=== PATIENT | female | born 2000 | race Caucasian/White ===

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

== ENCOUNTER → 2018-05-05 | Outpatient (CLI) | payer BC ==
[~2018-05-05] MED LIST: ACYC400T PO; DICY20TA3 PO; ESCITALOPRAM OX10 MG PO; IBUP-1027 PO; LISD40CA3 PO; NORE1TAB11 PO; ONDA8TAB9 PO; TRAM50TA PO
[2018-05-05 14:15] LABS: BASO # 0.1 x10^3/uL (0.0-0.2); BASO % 1 % (0-3); EOS # 0.5 x10^3/uL (0.0-0.7); EOS % 6 % (0-3); HEMATOCRIT 38.2 % (36.0-47.0); HEMOGLOBIN 13.2 g/dL (12.0-15.5); LYMPH # 2.2 x10^3/uL (1.0-4.8); LYMPH % 25 % (24-48); MEAN CORPUSCULAR HEMOGLOBIN 30 pg (25-35); MEAN CORPUSCULAR HGB CONC 35 g/dL (31-37); MEAN CORPUSCULAR VOLUME 87 fL (79-100); MONO # 0.5 x10^3/uL (0.0-1.1); MONO % 6 % (0-9); NEUT # 5.3 x10^3uL (1.8-7.7); NEUT % 62 % (31-73); PLATELET COUNT 346 x10^3/uL (140-400); RED BLOOD COUNT 4.39 x10^6/uL (3.50-5.40); RED CELL DISTRIBUTION WIDTH 12.6 % (11.5-14.5); WHITE BLOOD COUNT 8.6 x10^3/uL (4.0-11.0)
[2018-05-05 14:26] LABS: ALBUMIN 3.7 g/dL (3.4-5.0); CALCIUM 9.3 mg/dL (8.5-10.1); CREATININE 0.8 mg/dL (0.6-1.0); GFR 92.4; POTASSIUM 4.2 mmol/L (3.5-5.1); TOTAL BILIRUBIN 0.3 mg/dL (0.2-1.0)
== END | disposition home or self-care (01) ==
LOC: SURGPAT 13:35
PROVIDERS: ATTEND Surgery
DX: Z01.818 Encounter for other preprocedural examination (principal); K82.8 Other specified diseases of gallbladder
CPT/HCPCS: 36415; 80048; 82040; 82247; 85025

== ENCOUNTER 2018-05-12 09:23 | Day surgery (SDC) | payer BC ==
[~2018-05-12] VITALS: Ht 160 cm; Wt 90.3 kg
[~2018-05-12 09:23] MED LIST changes: +HYDROmorphone 2 MG/ML VIAL IV PRN; +IV RINGERS,LACTATED 1000ML 1,000 ML IV SCH; +LIDOCAINE 1% PF 2 ML VIAL. ID PRN; +PROCHLORPERAZINE 10 MG/2 ML VIAL. IV PRN; +fentaNYL PF VIAL 100 MCG/2 ML VIAL IV PRN
[2018-05-12] MEDS ORDERED: KETOROLAC 30 MG/ML INJ FOR OR. INJ ONE (09:33)
[2018-05-12] MEDS ORDERED: ROCURONIUM 50 MG/5 ML VIAL. ONE (09:33)
[2018-05-12] MEDS ORDERED: GLYCOPYRROLATE 1 MG/5 ML VIAL. ONE (09:33)
[2018-05-12] MEDS ORDERED: fentaNYL PF VIAL 100 MCG/2 ML VIAL ONE ×2 (09:33→11:33)
[2018-05-12] MEDS ORDERED: NEOSTIGMINE METHYLSULFATE 5 MG/5 ML SYRINGE. ONE (09:33)
[2018-05-12] MEDS ORDERED: MIDAZOLAM HCL/PF 2 MG/2 ML VIAL. ONE (09:33)
[2018-05-12] MEDS ORDERED: PROPOFOL 20 ML IV ONE ×2 (09:33→11:37)
[2018-05-12] MEDS ORDERED: ONDANSETRON PF 4 MG/2 ML VIAL. ONE (09:33)
[2018-05-12] MEDS ORDERED: DEXAMETHASONE SOD PHOS 20 MG/5 ML VIAL. ONE (09:33)
[2018-05-12] MEDS ORDERED: LIDOCAINE 1% PF 5 ML VIAL. ONE (09:34)
[2018-05-12] MEDS ORDERED: BUPIVAC MPF-EPI 0.5%-1:200000 30 ML VIAL. ONE (10:12)
[2018-05-12] MEDS ORDERED: IOHEXOL 300 MG/ML 100ML VIAL. ONE (10:12)
[2018-05-12] MEDS ORDERED: GLUCAGON,HUMAN RECOMBINANT 1 MG/ML VIAL. ONE (10:12)
[2018-05-12] MEDS ORDERED: SURGICEL HEMOSTAT 4X8 EACH. ONE (10:13)
[2018-05-12 10:47] LABS: U PREG PATIENT NEGATIVE (NEG)
[2018-05-12] MEDS ORDERED: ePHEDrine PF IN SALINE 50 MG/5 ML DISP.SYRIN IV ONE (11:23)
[2018-05-12] MEDS ORDERED: PHENYLEPHRINE in 0.9% NACL PF 1 MG/10 ML SYRINGE. IV ONE (11:25)
--- NOTE | 2018-05-12 12:04 | PDOC ---
BRIEF OPERATIVE NOTE Date: May 12, 2018 Pre-Op Diagnosis biliary dyskinesia Post-Op Diagnosis same Procedure Performed l/s cholecystectomy Surgeon Sanjeev [employer] CLINE Anesthesia Type: General Blood Loss 25cc IV Fluid 1000cc Specimens Obtained GB Findings supple GB Complications none Operative Note Wk # [id number] ABDON PARK MD May 12, 2018 12:04
--- NOTE | 2018-05-12 12:05 | DISCH ---
DISCHARGE INSTRUCTIONS Condition on Discharge Condition on Discharge: Stable Activity After Discharge Activity Instructions for Disc: Activity as tolerated, Avoid exertion Driving Instructions after Dis: Do not drive (3-4 days) Diet after Discharge Diet after Discharge: Regular Wound Incision Care Wound/Incision Care: Ice to area for comfort Other wound/incision instructi: sveta shower Tuesday Follow-Up Follow up with: Sanjeev 05/22 ABDON PARK MD May 12, 2018 12:05
--- NOTE | 2018-05-12 12:14 | OP ---
DATE OF SURGERY: 05/12/2018 PREOPERATIVE DIAGNOSIS: Biliary dyskinesia. POSTOPERATIVE DIAGNOSIS: Biliary dyskinesia. PROCEDURE: Laparoscopic cholecystectomy. SURGEON: Pro Pace MD BUS ANALYST: MARLYN Romo ANESTHESIA: General endotracheal. ESTIMATED BLOOD LOSS: 25. IV FLUIDS: 1 liter. INDICATIONS: The patient is a 17-year-old with postprandial pain and nausea. HIDA scan shows a low ejection fraction of 26%. She is brought for cholecystectomy. OPERATIVE FINDINGS: The liver was smooth and sharp. The gallbladder was supple. Visual inspection of the remainder of the abdomen failed to reveal obvious abnormalities. DESCRIPTION OF PROCEDURE: The patient brought to the operating suite, given a general endotracheal anesthetic and the abdomen prepped and draped in usual sterile fashion. An infraumbilical incision was infiltrated with local anesthetic, incised and a 5 mm Visiport used to safely gain access into the abdominal cavity. Pneumoperitoneum established. Camera inserted. Inspection carried out with results as noted above. With the table in reverse Trendelenburg, rolled to the left, the epigastric, midclavicular, and lateral ports were placed under direct vision. The gallbladder was retracted superolaterally. The cystic duct and cystic artery were encountered. The cystic artery was clipped and divided. The cystic duct was clipped on the gallbladder side. Attempts at cholangiogram was unsuccessful due to the small caliber of the cystic duct. As such, it was clipped x 3 and divided, taking care to avoid injury or compromise of the common duct. A second and tertiary vessel were encountered, clipped and divided and gallbladder freed from the bed with cautery dissection and placed in an EndoCatch bag. Good hemostasis in the fossa was seen as well as no evidence of a bile leak. Table returned to level. Gallbladder delivered through the epigastric incision. Epigastric incision closed with interrupted 0 Vicryl suture. Intra-abdominal pressure decreased to 6 cm of water. No bleeding from the epigastric closure or from the midclavicular port site or the lateral port site. Abdomen decompressed, camera slowly removed, no bleeding seen. Skin incisions closed with subcuticular 4-0 Monocryl. Steri-Strips and sterile dressings applied. The patient awakened from her anesthetic and taken to the recovery room in satisfactory condition. PRO V. VIVIAN, MD DR: MARILYN/lyn JOB#: [id number] / [id number]
[2018-05-12] MEDS: fentaNYL PF VIAL 100 MCG/2 ML VIAL IV PRN ×2 (12:22→12:30)
[2018-05-12] MEDS: MORPHINE SULFATE 2 MG/ML VIAL. IV PRN ×2 (12:48→13:03)
[2018-05-12] MEDS ORDERED: OXYC-323 PO (12:59)
[2018-05-12] MEDS ORDERED: oxyCODONE/APAP 5/325 1 TAB TABLET PO ONE (13:00)
[2018-05-12] MEDS ORDERED: DOCU50CA9 PO (13:01)
[2018-05-12 14:20] VITALS: BP 118/77
--- NOTE | 2018-05-15 17:08 | PATHOLOGY ---
[facility] Accession Number: [id number] . 01 Material submitted: . GALLBLADDER . 01 Clinical history: . Disease of gallbladder. . 02 Diagnosis: Gallbladder, laparoscopic cholecystectomy: - Cholesterolosis, focal. - Chronic cholecystitis. . (JPM:mm; 05/15/18) [facility], [facility]/05/15/2018 . 02 Comment: There are no calculi identified within the gallbladder lumen or specimen container. There is no evidence of malignancy. . (JPM:mm; 05/15/18) . 02 Electronically signed: . Monster Hale MD, Pathologist NPI- [id number] . 01 Gross description: . Received in formalin labeled "Dee Dee Her, gallbladder" is an intact cholecystectomy specimen measuring 7.0 x 3.5 x 2.8 cm. The serosa is bullock-green and smooth. The specimen is opened to reveal dark green velvety mucosa with scant yellow stippling and an average wall thickness of 0.2 cm. No polyps or masses are present. No calculi are present. Associate Attorney sections of the fundus and body and the cystic duct margin are submitted in cassette A1. [place] [place] SYC/SYC . 02 Pathologist provided ICD-10: K81.1, K82.4 . 02 CPT . 998076 Specimen Comment: A courtesy copy of this report has been sent to Specimen Comment: [phone], . Specimen Comment: Report sent to / DR HAWKINS Specimen Comment: A duplicate report has been generated due to demographic updates. Performed at: [address], [place], [place] [id number] MD Sandor García MD Phone: [phone] Performed at: [address] [id number] MD Monster Hale MD Phone: [phone]
== END 2018-05-12 14:28 | disposition home or self-care (01) ==
LOC: SURG 09:23
PROVIDERS: ATTEND Surgery
DX: K81.1 Chronic cholecystitis (principal); F90.9 Attention-deficit hyperactivity disorder, unspecified type; F31.9 Bipolar disorder, unspecified; Z98.890 Other specified postprocedural states; Z91.018 Allergy to other foods; Z79.899 Other long term (current) drug therapy; F17.210 Nicotine dependence, cigarettes, uncomplicated
CPT/HCPCS: 47562; 81025; 88304; A7015; J0690; J0780; J1100; J1885; J2250; J2270; J2370; J2405; J2704; J2710; J3010; J3490; J7030; J7120; Q9967; J1610